=== PATIENT | female | born 1945 | race Caucasian/White ===

== ENCOUNTER 2021-08-01 13:06 | Emergency (ER) | payer OTHER, MEDICARE ==
[~2021-08-01] VITALS: Ht 157.5 cm; Wt 55.3 kg
[2021-08-01 13:30] VITALS: BP_SYST 150
--- NOTE | 2021-08-01 13:35 | NUR ---
Patient to ER bed 8 for evaluation. Side rails up. Report given to Kevin ENRIQUEZ.
--- NOTE | 2021-08-01 13:47 | NUR ---
removed ring finger , no sign of trauma noted, pt seemed very pleased, left prior to receiving dc paperwork.
--- NOTE | 2021-08-01 13:54 | NUR ---
Patient does not wish to proceed with medical care recommended by . Patient given information related to possible complications, up to and including , which could occur as a result of leaving hospital at this time. Patient verbalizes understanding of risks involved leaving against medical advice. Patient has signed AMA form.
== END 2021-08-01 13:51 | disposition home or self-care (01) ==
LOC: SED 13:06
DX: S60.444A External constriction of right ring finger, initial encounter (principal); W49.04XA Ring or other jewelry causing external constriction, initial encounter; Y93.89 Activity, other specified; Y92.89 Other specified places as the place of occurrence of the external cause; Y99.8 Other external cause status
CPT/HCPCS: 99284